=== PATIENT | female | born 1990 | race American Indian/Alaskan Native ===

== ENCOUNTER 2021-03-01 08:24 | Inpatient (IN) | payer OTHER ==
[2021-03-01] MEDS ORDERED: TERBUTALINE 1 MG/1 ML INJ SUB-Q PRN (10:00)
[2021-03-01] MEDS ORDERED: LIDOCAINE (2%) 20 MG/1 ML VIAL 20 ML MDV INFILTRATI SCH (10:00)
[2021-03-01] MEDS ORDERED: BUTORPHANOL 2 MG/1 ML INJ IV PRN (10:00)
[2021-03-01] MEDS ORDERED: fentaNYL 100 MCG/2 ML INJ IV PRN (10:00)
[2021-03-01] MEDS ORDERED: OXYTOCIN DRIP 30 UNITS/500 ML BAG IV SCH ×2 (10:00)
[2021-03-01] MEDS ORDERED: MINERAL OIL 30 ML ORAL LIQD PO PRN (10:00)
[2021-03-01] MEDS ORDERED: ePHEDrine SULFATE 50 MG/1 ML INJ IV PRN (10:00)
[2021-03-01] MEDS ORDERED: ONDANSETRON 4 MG/2 ML INJ IV PRN (10:00)
[2021-03-01] MEDS ORDERED: ACETAMINOPHEN 325 MG TAB PO PRN (10:00)
[2021-03-01] MEDS ORDERED: DINOPROSTONE 10 MG VAG SUPP VG NR (10:17)
[2021-03-01] MEDS ORDERED: AMPICILLIN/NS 2 GM/100 ML 2 GM/100 ML BAG IV ONE (10:23)
[2021-03-01 10:29] LABS: Hematocrit 34.1 % (30.3-42.9); Hemoglobin 11.8 gm/dl (10.1-14.3); Mean Corpuscular HGB Conc 35 % (30-34); Mean Corpuscular Volume 91 fl (79-97); Platelet Count 240 K/mm3 (140-440); Red Blood Count 3.73 M/mm3 (3.65-5.03); Red Cell Distribution Width 13.9 % (13.2-15.2)
[2021-03-01] MEDS: LACTATED RINGERS 1,000 ML IV SCH (10:31)
--- NOTE | 2021-03-01 10:31 | History and Physical Report ---
History of Present Illness Date of examination: 03/01/21 Date of admission: 03/01/21 08:24 Chief complaint: iol History of present illness: 30-year-old G 1 P0 at 38-0/7 weeks with CHARMAINE 03/15/2021 for induction of labor for large for gestational age care lifecycle,total 13 visits Labs O+ antibody negative Rubella immune VDRL nonreactive Hep B negative HIV negative Platelets 310K HSV-2 9 Varicella immune GC chlamydia negative Trichomoniasis positive treated on 02/26 GBS positive Morbid obesity Past History Past Surgical History: no surgical history - Obstetrical History Expected Date of Delivery: 03/15/21 Actual Gestation: 38 Week(s) 0 Day(s) : 1 Medications and Allergies Allergies Allergy/AdvReac Type Severity Reaction Status Date / Time No Known Allergies Allergy Verified 03/01/21 09:43 Home Medications Medication Instructions Recorded Confirmed Last Taken Type One Daily Tablet 1 tab PO DAILY 03/01/21 03/01/21 02/28/21 History Active Meds: Active Medications Acetaminophen (Acetaminophen 325 Mg Tab) 650 mg PO Q4H PRN PRN Reason: Pain, Mild (1-3) Butorphanol Tartrate (Butorphanol 2 Mg/1 Ml Inj) 1 mg IV Q2H PRN PRN Reason: Pain, Moderate(4-6) LABOR PAIN Dinoprostone (Dinoprostone 10 Mg Vag Supp) 10 mg VG ONCE NR Stop: 03/01/21 16:00 Ephedrine Sulfate (Ephedrine Sulfate 50 Mg/1 Ml Inj) 10 mg IV Q2M PRN PRN Reason: Hypotension Fentanyl (Fentanyl 100 Mcg/2 Ml Inj) 100 mcg IV Q2H PRN PRN Reason: Pain,Severe (7-10) LABOR PAIN Oxytocin/Sodium Chloride (Pitocin/Ns 30 Unit/500ml) 30 units in 500 mls @ 2 mls/hr IV TITR RICARDO; Protocol Lactated Ringer's (Lactated Ringers) 1,000 mls @ 125 mls/hr IV DIRECT RICARDO Oxytocin/Sodium Chloride (Pitocin/Ns 30 Unit/500ml) 30 units in 500 mls @ 40 mls/hr IV TITR RICARDO; Protocol Ampicillin Sodium (Ampicillin/Ns 2 Gm/100 Ml) 2 gm in 100 mls @ 100 mls/hr IV ONCE ONE; Protocol Stop: 03/01/21 11:22 Ampicillin Sodium (Ampicillin/Ns 1 Gm/50 Ml) 1 gm in 50 mls @ 100 mls/hr IV Q4H RICARDO; Protocol Lidocaine (Lidocaine (2%) 20 Mg/1 Ml Vial 20 Ml Mdv) 20 ml INFILTRATI ONCE RICARDO Stop: 03/02/21 09:59 Mineral Oil (Mineral Oil 30 Ml Oral Liqd) 30 ml PO QHS PRN PRN Reason: Constipation Ondansetron HCl (Ondansetron 4 Mg/2 Ml Inj) 4 mg IV Q8H PRN PRN Reason: Nausea And Vomiting Terbutaline Sulfate (Terbutaline 1 Mg/1 Ml Inj) 0.25 mg SUB-Q ONCE PRN PRN Reason: Hyperstimulation/Hypertonicity - Vital Signs Vital signs: Vital Signs Pulse BP 107 H 137/84 03/01/21 08:57 03/01/21 08:57 Temp Pulse Resp BP Pulse Ox 98.4 F 92 H 18 114/61 97 03/01/21 08:58 03/01/21 10:24 03/01/21 08:58 03/01/21 10:02 03/01/21 10:24 - Physical Exam Breasts: Positive: deferred Cardiovascular: Regular rate Lungs: Positive: Clear to auscultation Abdomen: Positive: normal appearance, normal bowel sounds Genitourinary (Female): Positive: normal external genitalia, normal perenium Vagina: Positive: normal moisture Extremities: Positive: normal Deep Tendon Reflex Grade: Normal +2 - Obstetrical FHR: category 1 Cervical Dilatation: 0 station: -4 Results All other labs normal. Assessment and Plan Induction of labor secondary to LGA(estimated weight at the 90th percentile at 35 weeks) Plan Cervidil GBS prophylaxis Continuous monitor Maternal status reassuring overall Monitor labor progress closely Marta Montiel MD
[2021-03-02] MEDS ORDERED: DINOPROSTONE 10 MG VAG SUPP VG ONE (03:30)
--- NOTE | 2021-03-02 04:09 | Event Note ---
Date: 03/02/21 Cervidil 10 mg placed in posterior fornix of vagina.
--- NOTE | 2021-03-02 10:10 | Progress Note ---
Subjective - Subjective Date of service: 03/02/21 Interval history: AM rounds IOL for LGA Cervidil #2 placed at 03:56 this AM 03/02/21 FHT: Category 1 [place]: irregular continue current plan of care: cervical ripening. Will reassess this afternoon Maternal/ well being reassuring overall. Marta Montiel MD Objective - Vital Signs Vital Signs: Vital Signs - 12hr 03/01/21 03/01/21 03/01/21 22:14 22:19 22:24 Temperature Pulse Rate 112 H 110 H 89 Respiratory Rate Blood Pressure O2 Sat by Pulse 98 97 96 Oximetry 03/01/21 03/01/21 03/01/21 22:29 22:34 22:39 Temperature Pulse Rate 98 H 91 H 106 H Respiratory Rate Blood Pressure O2 Sat by Pulse 96 97 98 Oximetry 03/01/21 03/01/21 03/01/21 22:44 22:49 22:54 Temperature Pulse Rate 102 H 98 H 94 H Respiratory Rate Blood Pressure O2 Sat by Pulse 98 97 96 Oximetry 03/01/21 03/01/21 03/01/21 22:59 23:04 23:09 Temperature Pulse Rate 99 H 101 H 97 H Respiratory Rate Blood Pressure O2 Sat by Pulse 97 97 96 Oximetry 03/01/21 03/01/21 03/01/21 23:14 23:19 23:25 Temperature Pulse Rate 98 H 101 H 96 H Respiratory Rate Blood Pressure O2 Sat by Pulse 96 97 98 Oximetry 03/01/21 03/01/21 03/01/21 23:30 23:35 23:38 Temperature Pulse Rate 96 H 97 H 93 H Respiratory Rate Blood Pressure 122/57 O2 Sat by Pulse 97 97 Oximetry 03/01/21 03/01/21 03/01/21 23:40 23:50 23:55 Temperature Pulse Rate 101 H 102 H 84 Respiratory Rate Blood Pressure O2 Sat by Pulse 98 98 97 Oximetry 03/02/21 03/02/21 03/02/21 00:00 00:05 00:10 Temperature Pulse Rate 98 H 97 H 90 Respiratory Rate Blood Pressure O2 Sat by Pulse 96 96 96 Oximetry 03/02/21 03/02/21 03/02/21 00:15 00:17 00:20 Temperature Pulse Rate 99 H 91 H 91 H Respiratory Rate Blood Pressure O2 Sat by Pulse 97 94 97 Oximetry 03/02/21 03/02/21 03/02/21 00:25 00:30 00:35 Temperature Pulse Rate 86 94 H 92 H Respiratory Rate Blood Pressure O2 Sat by Pulse 96 96 97 Oximetry 03/02/21 03/02/21 03/02/21 00:38 00:40 00:45 Temperature Pulse Rate 85 82 93 H Respiratory Rate Blood Pressure 107/70 O2 Sat by Pulse 95 99 Oximetry 03/02/21 03/02/21 03/02/21 00:50 00:55 01:00 Temperature Pulse Rate 97 H 102 H 96 H Respiratory Rate Blood Pressure O2 Sat by Pulse 98 97 97 Oximetry 03/02/21 03/02/21 03/02/21 01:05 01:10 01:15 Temperature Pulse Rate 88 101 H 92 H Respiratory Rate Blood Pressure O2 Sat by Pulse 97 98 97 Oximetry 03/02/21 03/02/21 03/02/21 01:20 01:25 01:30 Temperature Pulse Rate 88 99 H 100 H Respiratory Rate Blood Pressure O2 Sat by Pulse 96 97 97 Oximetry 03/02/21 03/02/21 03/02/21 01:35 01:40 01:45 Temperature Pulse Rate 104 H 102 H 101 H Respiratory Rate Blood Pressure O2 Sat by Pulse 97 98 97 Oximetry 03/02/21 03/02/21 03/02/21 01:50 01:55 01:58 Temperature Pulse Rate 89 90 87 Respiratory Rate Blood Pressure 111/60 O2 Sat by Pulse 98 98 94 Oximetry 03/02/21 03/02/21 03/02/21 02:00 02:05 02:10 Temperature Pulse Rate 95 H 99 H 98 H Respiratory Rate Blood Pressure O2 Sat by Pulse 96 96 97 Oximetry 03/02/21 03/02/21 03/02/21 02:15 02:23 02:28 Temperature Pulse Rate 90 92 H 99 H Respiratory Rate Blood Pressure O2 Sat by Pulse 98 97 97 Oximetry 03/02/21 03/02/21 03/02/21 02:33 02:38 02:43 Temperature Pulse Rate 99 H 90 80 Respiratory Rate Blood Pressure O2 Sat by Pulse 97 97 98 Oximetry 03/02/21 03/02/21 03/02/21 02:48 02:53 02:58 Temperature Pulse Rate 79 95 H 87 Respiratory Rate Blood Pressure O2 Sat by Pulse 97 98 98 Oximetry 04/03/02/21 03/02/21 03:03 03:08 03:13 Temperature Pulse Rate 79 83 81 Respiratory Rate Blood Pressure O2 Sat by Pulse 98 98 97 Oximetry 03/02/21 03/02/21 03/02/21 03:18 03:23 03:28 Temperature Pulse Rate 84 86 87 Respiratory Rate Blood Pressure O2 Sat by Pulse 97 97 97 Oximetry 03/02/21 03/02/21 03/02/21 03:33 03:38 03:39 Temperature Pulse Rate 87 75 87 Respiratory Rate Blood Pressure O2 Sat by Pulse 97 93 97 Oximetry 03/02/21 03/02/21 03/02/21 03:44 03:49 03:54 Temperature Pulse Rate 85 102 H 91 H Respiratory Rate Blood Pressure O2 Sat by Pulse 97 97 96 Oximetry 03/02/21 03/02/21 03/02/21 03:59 04:04 04:09 Temperature Pulse Rate 86 96 H 94 H Respiratory Rate Blood Pressure O2 Sat by Pulse 99 96 98 Oximetry 03/02/21 03/02/21 03/02/21 04:14 04:19 04:24 Temperature Pulse Rate 100 H 85 79 Respiratory Rate Blood Pressure O2 Sat by Pulse 98 98 98 Oximetry 03/02/21 03/02/21 03/02/21 04:29 04:34 04:39 Temperature Pulse Rate 86 88 78 Respiratory Rate Blood Pressure 109/57 O2 Sat by Pulse 97 96 98 Oximetry 03/02/21 03/02/21 03/02/21 04:44 04:49 04:53 Temperature Pulse Rate 77 84 86 Respiratory Rate Blood Pressure O2 Sat by Pulse 97 97 94 Oximetry 03/02/21 03/02/21 03/02/21 04:54 04:59 05:03 Temperature Pulse Rate 83 85 89 Respiratory Rate Blood Pressure O2 Sat by Pulse 97 97 94 Oximetry 03/02/21 03/02/21 03/02/21 05:04 05:09 05:14 Temperature Pulse Rate 73 73 84 Respiratory Rate Blood Pressure O2 Sat by Pulse 96 95 95 Oximetry 03/02/21 03/02/21 03/02/21 05:16 05:19 05:24 Temperature Pulse Rate 74 94 H 88 Respiratory Rate Blood Pressure O2 Sat by Pulse 94 95 95 Oximetry 03/02/21 03/02/21 03/02/21 05:29 05:34 05:38 Temperature Pulse Rate 79 84 81 Respiratory Rate Blood Pressure 124/60 O2 Sat by Pulse 96 96 Oximetry 03/02/21 03/02/21 03/02/21 05:39 05:42 05:44 Temperature Pulse Rate 86 76 85 Respiratory Rate Blood Pressure O2 Sat by Pulse 96 93 96 Oximetry 03/02/21 03/02/21 03/02/21 05:49 05:54 05:59 Temperature Pulse Rate 86 80 81 Respiratory Rate Blood Pressure O2 Sat by Pulse 96 96 96 Oximetry 03/02/21 03/02/21 03/02/21 06:04 06:07 06:09 Temperature Pulse Rate 85 81 82 Respiratory Rate Blood Pressure O2 Sat by Pulse 96 93 96 Oximetry 03/02/21 03/02/21 03/02/21 06:14 06:19 06:24 Temperature Pulse Rate 86 82 82 Respiratory Rate Blood Pressure O2 Sat by Pulse 96 96 95 Oximetry 03/02/21 03/02/21 03/02/21 06:29 06:34 06:36 Temperature Pulse Rate 84 81 74 Respiratory Rate Blood Pressure O2 Sat by Pulse 96 96 93 Oximetry 03/02/21 03/02/21 03/02/21 06:39 06:44 06:49 Temperature Pulse Rate 75 76 84 Respiratory Rate Blood Pressure O2 Sat by Pulse 99 97 98 Oximetry 03/02/21 03/02/21 03/02/21 06:54 06:59 07:04 Temperature Pulse Rate 78 88 83 Respiratory Rate Blood Pressure O2 Sat by Pulse 98 97 99 Oximetry 03/02/21 03/02/21 03/02/21 07:09 07:14 07:19 Temperature Pulse Rate 80 78 78 Respiratory Rate Blood Pressure O2 Sat by Pulse 96 98 97 Oximetry 03/02/21 03/02/21 03/02/21 07:24 07:29 07:33 Temperature Pulse Rate 75 82 75 Respiratory Rate Blood Pressure O2 Sat by Pulse 99 97 94 Oximetry 03/02/21 03/02/21 03/02/21 07:34 07:38 07:39 Temperature Pulse Rate 75 71 75 Respiratory Rate Blood Pressure 110/57 O2 Sat by Pulse 89 96 Oximetry 03/02/21 03/02/21 03/02/21 07:42 07:44 07:49 Temperature Pulse Rate 71 73 71 Respiratory Rate Blood Pressure O2 Sat by Pulse 93 96 92 Oximetry 03/02/21 03/02/21 03/02/21 07:54 07:58 07:59 Temperature Pulse Rate 74 68 72 Respiratory Rate Blood Pressure O2 Sat by Pulse 97 90 97 Oximetry 03/02/21 03/02/21 03/02/21 08:00 08:04 08:09 Temperature 98.1 F Pulse Rate 71 82 Respiratory 16 Rate Blood Pressure O2 Sat by Pulse 97 96 Oximetry 03/02/21 03/02/21 03/02/21 08:14 08:23 08:28 Temperature Pulse Rate 105 H 91 H 84 Respiratory Rate Blood Pressure O2 Sat by Pulse 97 100 99 Oximetry 03/02/21 03/02/21 03/02/21 08:33 08:38 08:39 Temperature Pulse Rate 83 98 H 98 H Respiratory Rate Blood Pressure 131/58 O2 Sat by Pulse 99 97 Oximetry 03/02/21 03/02/21 03/02/21 08:43 08:48 08:53 Temperature Pulse Rate 91 H 82 80 Respiratory Rate Blood Pressure O2 Sat by Pulse 98 98 98 Oximetry 03/02/21 03/02/21 03/02/21 08:58 09:03 09:08 Temperature Pulse Rate 84 91 H 93 H Respiratory Rate Blood Pressure O2 Sat by Pulse 99 97 95 Oximetry 03/02/21 03/02/21 03/02/21 09:13 09:18 09:23 Temperature Pulse Rate 85 79 85 Respiratory Rate Blood Pressure O2 Sat by Pulse 97 96 97 Oximetry 03/02/21 03/02/21 03/02/21 09:28 09:33 09:38 Temperature Pulse Rate 87 83 73 Respiratory Rate Blood Pressure O2 Sat by Pulse 98 96 98 Oximetry 03/02/21 03/02/21 03/02/21 09:39 09:43 09:48 Temperature Pulse Rate 81 79 80 Respiratory Rate Blood Pressure 136/84 O2 Sat by Pulse 97 98 Oximetry 03/02/21 03/02/21 03/02/21 09:53 09:58 10:03 Temperature Pulse Rate 89 101 H 98 H Respiratory Rate Blood Pressure O2 Sat by Pulse 97 97 99 Oximetry - Labs Labs: Abnormal Labs 03/01/21 09:18 MCHC 35 H Laboratory Results - last 24 hr 03/01/21 03/01/21 09:18 09:18 WBC 7.4 RBC 3.73 Hgb 11.8 Hct 34.1 MCV 91 MCH 32 MCHC 35 H RDW 13.9 Plt Count 240 Blood Type O POSITIVE Antibody Screen Negative
--- NOTE | 2021-03-02 18:45 | Progress Note ---
Subjective - Subjective Date of service: 03/02/21 Interval history: PM rounds IOL for LGA Cervidilx2 with no cervical change closed,long,high FHT: Category 1 [place]: irregular continue current plan of care: cervical ripening with cytotec x4 doses If no cervical change plan for operative delivery Maternal/ well being reassuring overall. Marta Montiel MD Objective - Vital Signs Vital Signs: Vital Signs - 12hr 03/02/21 03/02/21 03/02/21 06:49 06:54 06:59 Temperature Pulse Rate 84 78 88 Respiratory Rate Blood Pressure O2 Sat by Pulse 98 98 97 Oximetry 03/02/21 03/02/21 03/02/21 07:04 07:09 07:14 Temperature Pulse Rate 83 80 78 Respiratory Rate Blood Pressure O2 Sat by Pulse 99 96 98 Oximetry 03/02/21 03/02/21 03/02/21 07:19 07:24 07:29 Temperature Pulse Rate 78 75 82 Respiratory Rate Blood Pressure O2 Sat by Pulse 97 99 97 Oximetry 03/02/21 03/02/21 03/02/21 07:33 07:34 07:38 Temperature Pulse Rate 75 75 71 Respiratory Rate Blood Pressure 110/57 O2 Sat by Pulse 94 89 Oximetry 03/02/21 03/02/21 03/02/21 07:39 07:42 07:44 Temperature Pulse Rate 75 71 73 Respiratory Rate Blood Pressure O2 Sat by Pulse 96 93 96 Oximetry 03/02/21 03/02/21 03/02/21 07:49 07:54 07:58 Temperature Pulse Rate 71 74 68 Respiratory Rate Blood Pressure O2 Sat by Pulse 92 97 90 Oximetry 03/02/21 03/02/21 03/02/21 07:59 08:00 08:04 Temperature 98.1 F Pulse Rate 72 71 Respiratory 16 Rate Blood Pressure O2 Sat by Pulse 97 97 Oximetry 03/02/21 03/02/21 03/02/21 08:09 08:14 08:23 Temperature Pulse Rate 82 105 H 91 H Respiratory Rate Blood Pressure O2 Sat by Pulse 96 97 100 Oximetry 03/02/21 03/02/21 03/02/21 08:28 08:33 08:38 Temperature Pulse Rate 84 83 98 H Respiratory Rate Blood Pressure O2 Sat by Pulse 99 99 97 Oximetry 03/02/21 03/02/21 03/02/21 08:39 08:43 08:48 Temperature Pulse Rate 98 H 91 H 82 Respiratory Rate Blood Pressure 131/58 O2 Sat by Pulse 98 98 Oximetry 03/02/21 03/02/21 03/02/21 08:53 08:58 09:03 Temperature Pulse Rate 80 84 91 H Respiratory Rate Blood Pressure O2 Sat by Pulse 98 99 97 Oximetry 03/02/21 03/02/21 03/02/21 09:08 09:13 09:18 Temperature Pulse Rate 93 H 85 79 Respiratory Rate Blood Pressure O2 Sat by Pulse 95 97 96 Oximetry 03/02/21 03/02/21 03/02/21 09:23 09:28 09:33 Temperature Pulse Rate 85 87 83 Respiratory Rate Blood Pressure O2 Sat by Pulse 97 98 96 Oximetry 03/02/21 03/02/21 03/02/21 09:38 09:39 09:43 Temperature Pulse Rate 73 81 79 Respiratory Rate Blood Pressure 136/84 O2 Sat by Pulse 98 97 Oximetry 03/02/21 03/02/21 03/02/21 09:48 09:53 09:58 Temperature Pulse Rate 80 89 101 H Respiratory Rate Blood Pressure O2 Sat by Pulse 98 97 97 Oximetry 03/02/21 03/02/21 03/02/21 10:03 10:08 10:13 Temperature Pulse Rate 98 H 86 81 Respiratory Rate Blood Pressure O2 Sat by Pulse 99 98 97 Oximetry 03/02/21 03/02/21 03/02/21 10:18 10:23 10:28 Temperature Pulse Rate 81 81 82 Respiratory Rate Blood Pressure O2 Sat by Pulse 98 98 99 Oximetry 03/02/21 03/02/21 03/02/21 10:33 10:50 10:55 Temperature Pulse Rate 86 85 84 Respiratory Rate Blood Pressure O2 Sat by Pulse 99 99 98 Oximetry 03/02/21 03/02/21 03/02/21 10:57 11:00 11:05 Temperature Pulse Rate 81 81 80 Respiratory Rate Blood Pressure 119/57 O2 Sat by Pulse 97 97 Oximetry 03/02/21 03/02/21 03/02/21 11:10 11:12 11:15 Temperature Pulse Rate 79 78 78 Respiratory Rate Blood Pressure O2 Sat by Pulse 97 94 97 Oximetry 03/02/21 03/02/21 03/02/21 11:20 11:25 11:30 Temperature Pulse Rate 80 83 81 Respiratory Rate Blood Pressure O2 Sat by Pulse 97 96 96 Oximetry 03/02/21 03/02/21 03/02/21 11:35 11:39 11:40 Temperature Pulse Rate 84 78 82 Respiratory Rate Blood Pressure 109/55 O2 Sat by Pulse 96 91 97 Oximetry 03/02/21 03/02/21 03/02/21 11:45 11:50 11:55 Temperature Pulse Rate 81 76 82 Respiratory Rate Blood Pressure O2 Sat by Pulse 97 96 96 Oximetry 03/02/21 03/02/21 03/02/21 12:00 12:05 12:10 Temperature 98.4 F Pulse Rate 78 82 74 Respiratory 18 Rate Blood Pressure O2 Sat by Pulse 95 97 98 Oximetry 03/02/21 03/02/21 03/02/21 12:15 12:20 12:25 Temperature Pulse Rate 73 76 72 Respiratory Rate Blood Pressure O2 Sat by Pulse 97 97 97 Oximetry 03/02/21 03/02/21 03/02/21 12:30 12:35 12:38 Temperature Pulse Rate 76 74 77 Respiratory Rate Blood Pressure 115/59 O2 Sat by Pulse 98 96 Oximetry 03/02/21 03/02/21 03/02/21 12:40 12:45 12:50 Temperature Pulse Rate 77 78 80 Respiratory Rate Blood Pressure O2 Sat by Pulse 98 97 97 Oximetry 03/02/21 03/02/21 03/02/21 12:55 13:00 13:05 Temperature Pulse Rate 77 83 95 H Respiratory Rate Blood Pressure O2 Sat by Pulse 96 97 98 Oximetry 03/02/21 03/02/21 03/02/21 13:10 13:15 13:20 Temperature Pulse Rate 92 H 91 H 76 Respiratory Rate Blood Pressure O2 Sat by Pulse 100 99 99 Oximetry 03/02/21 03/02/21 03/02/21 13:25 13:30 13:35 Temperature Pulse Rate 85 86 70 Respiratory Rate Blood Pressure O2 Sat by Pulse 100 99 100 Oximetry 03/02/21 03/02/21 03/02/21 13:38 13:40 13:45 Temperature Pulse Rate 72 75 77 Respiratory Rate Blood Pressure 117/64 O2 Sat by Pulse 99 98 Oximetry 03/02/21 03/02/21 03/02/21 13:50 13:55 14:00 Temperature Pulse Rate 74 77 81 Respiratory Rate Blood Pressure O2 Sat by Pulse 99 97 97 Oximetry 03/02/21 03/02/21 03/02/21 14:05 14:10 14:12 Temperature Pulse Rate 80 72 66 Respiratory Rate Blood Pressure O2 Sat by Pulse 97 96 92 Oximetry 03/02/21 03/02/21 03/02/21 14:15 14:18 14:20 Temperature Pulse Rate 83 67 77 Respiratory Rate Blood Pressure O2 Sat by Pulse 94 92 95 Oximetry 03/02/21 03/02/21 03/02/21 14:25 14:30 14:35 Temperature Pulse Rate 83 87 84 Respiratory Rate Blood Pressure O2 Sat by Pulse 97 96 96 Oximetry 03/02/21 03/02/21 03/02/21 14:38 14:40 14:45 Temperature Pulse Rate 81 86 81 Respiratory Rate Blood Pressure 113/57 O2 Sat by Pulse 94 96 97 Oximetry 03/02/21 03/02/21 03/02/21 14:50 14:55 15:00 Temperature 98.7 F Pulse Rate 81 86 80 Respiratory 18 Rate Blood Pressure O2 Sat by Pulse 96 97 97 Oximetry 03/02/21 03/02/21 03/02/21 15:05 15:10 15:15 Temperature Pulse Rate 78 80 83 Respiratory Rate Blood Pressure O2 Sat by Pulse 98 98 99 Oximetry 03/02/21 03/02/21 03/02/21 15:20 15:25 15:43 Temperature Pulse Rate 86 79 102 H Respiratory Rate Blood Pressure O2 Sat by Pulse 98 99 99 Oximetry 03/02/21 03/02/21 03/02/21 15:48 15:53 15:58 Temperature Pulse Rate 92 H 99 H 101 H Respiratory Rate Blood Pressure O2 Sat by Pulse 99 99 100 Oximetry 03/02/21 03/02/21 03/02/21 16:02 16:03 16:08 Temperature Pulse Rate 94 H 78 81 Respiratory Rate Blood Pressure 120/63 O2 Sat by Pulse 99 99 Oximetry 03/02/21 03/02/21 03/02/21 16:13 16:18 16:23 Temperature Pulse Rate 79 85 79 Respiratory Rate Blood Pressure O2 Sat by Pulse 100 99 99 Oximetry 03/02/21 03/02/21 03/02/21 16:28 16:33 16:38 Temperature Pulse Rate 81 90 89 Respiratory Rate Blood Pressure 120/58 O2 Sat by Pulse 99 99 99 Oximetry 03/02/21 03/02/21 03/02/21 16:43 16:48 18:30 Temperature Pulse Rate 83 92 H 105 H Respiratory Rate Blood Pressure 126/69 O2 Sat by Pulse 100 98 Oximetry 03/02/21 03/02/21 18:36 18:41 Temperature Pulse Rate 98 H 94 H Respiratory Rate Blood Pressure O2 Sat by Pulse 99 99 Oximetry - Labs Labs: Abnormal Labs 03/01/21 03/01/21 09:18 09:45 MCHC 35 H Coronavirus (PCR) Positive A Laboratory Results - last 24 hr 03/01/21 09:45 Coronavirus (PCR) Positive A
[2021-03-02] MEDS ORDERED: miSOPROStol 200 MCG TAB PO SCH (19:00)
[2021-03-02] MEDS: LACTATED RINGERS 1,000 ML IV SCH ×2 (19:06→22:36)
[2021-03-02] MEDS: miSOPROStol 25 MCG TAB PO SCH ×2 (19:35→23:33)
[2021-03-03] MEDS: miSOPROStol 25 MCG TAB PO SCH (03:44)
[2021-03-03] MEDS: LACTATED RINGERS 1,000 ML IV SCH ×2 (07:01→15:06)
[2021-03-03] MEDS ORDERED: LOPERAMIDE 2 MG CAP PO PRN (08:12)
[2021-03-03] MEDS ORDERED: miSOPROStol 25 MCG TAB PO ONE (11:00)
--- NOTE | 2021-03-03 13:21 | Progress Note ---
Assessment and Plan A: at 38 weeks, 2 days gestation. Class 3 obesity. P: Cytotec for cervical ripening per Dr. Montiel's recommendation. Continuous EFM. Subjective - Subjective Date of service: 03/03/21 Principal diagnosis: at 36 weeks, 2 days gestation; IOL Patient reports: movement normal, no new complaints, no loss of fluid, no vaginal bleeding, no contractions Objective - Vital Signs Vital Signs: Vital Signs - 12hr 03/03/21 03/03/21 03/03/21 01:24 01:29 01:33 Temperature Pulse Rate 95 H 102 H 90 Respiratory Rate Blood Pressure 119/71 Blood Pressure [Left] O2 Sat by Pulse 97 96 Oximetry 03/03/21 03/03/21 03/03/21 01:34 01:39 01:44 Temperature Pulse Rate 102 H 92 H 101 H Respiratory Rate Blood Pressure Blood Pressure [Left] O2 Sat by Pulse 97 97 97 Oximetry 03/03/21 03/03/21 03/03/21 01:49 01:54 01:59 Temperature Pulse Rate 96 H 95 H 88 Respiratory Rate Blood Pressure Blood Pressure [Left] O2 Sat by Pulse 98 98 99 Oximetry 03/03/21 03/03/21 03/03/21 02:04 02:09 02:14 Temperature Pulse Rate 93 H 81 89 Respiratory Rate Blood Pressure Blood Pressure [Left] O2 Sat by Pulse 96 96 97 Oximetry 03/03/21 03/03/21 03/03/21 02:19 02:24 02:29 Temperature Pulse Rate 91 H 91 H 95 H Respiratory Rate Blood Pressure Blood Pressure [Left] O2 Sat by Pulse 97 98 99 Oximetry 03/03/21 03/03/21 03/03/21 02:32 02:34 02:39 Temperature Pulse Rate 88 95 H 79 Respiratory Rate Blood Pressure 116/63 Blood Pressure [Left] O2 Sat by Pulse 98 98 Oximetry 03/03/21 03/03/21 03/03/21 02:44 02:49 02:54 Temperature Pulse Rate 89 89 97 H Respiratory Rate Blood Pressure Blood Pressure [Left] O2 Sat by Pulse 98 99 98 Oximetry 03/03/21 03/03/21 03/03/21 02:59 03:04 03:09 Temperature Pulse Rate 94 H 86 90 Respiratory Rate Blood Pressure Blood Pressure [Left] O2 Sat by Pulse 98 98 98 Oximetry 03/03/21 03/03/21 03/03/21 03:14 03:19 03:35 Temperature Pulse Rate 95 H 88 83 Respiratory Rate Blood Pressure Blood Pressure [Left] O2 Sat by Pulse 97 99 100 Oximetry 03/03/21 03/03/21 03/03/21 03:40 03:45 03:50 Temperature Pulse Rate 122 H 103 H 95 H Respiratory Rate Blood Pressure Blood Pressure [Left] O2 Sat by Pulse 97 97 97 Oximetry 03/03/21 03/03/21 03/03/21 03:55 04:00 04:05 Temperature 98.1 F Pulse Rate 94 H 97 H 101 H Respiratory Rate Blood Pressure Blood Pressure [Left] O2 Sat by Pulse 97 97 98 Oximetry 03/03/21 03/03/21 03/03/21 04:10 04:15 04:20 Temperature Pulse Rate 98 H 92 H 106 H Respiratory Rate Blood Pressure Blood Pressure [Left] O2 Sat by Pulse 97 96 97 Oximetry 03/03/21 03/03/21 03/03/21 04:25 04:30 04:32 Temperature Pulse Rate 107 H 89 84 Respiratory Rate Blood Pressure 109/55 Blood Pressure [Left] O2 Sat by Pulse 96 98 94 Oximetry 03/03/21 03/03/21 03/03/21 04:35 04:40 04:45 Temperature Pulse Rate 88 83 74 Respiratory Rate Blood Pressure Blood Pressure [Left] O2 Sat by Pulse 96 97 97 Oximetry 03/03/21 03/03/21 03/03/21 04:50 04:55 05:00 Temperature Pulse Rate 85 87 84 Respiratory Rate Blood Pressure Blood Pressure [Left] O2 Sat by Pulse 96 95 97 Oximetry 03/03/21 03/03/21 03/03/21 05:05 05:10 05:14 Temperature Pulse Rate 83 86 87 Respiratory Rate Blood Pressure Blood Pressure [Left] O2 Sat by Pulse 97 97 94 Oximetry 03/03/21 03/03/21 03/03/21 05:15 05:20 05:23 Temperature Pulse Rate 86 88 91 H Respiratory Rate Blood Pressure Blood Pressure [Left] O2 Sat by Pulse 97 96 94 Oximetry 03/03/21 03/03/21 03/03/21 05:25 05:30 05:32 Temperature Pulse Rate 86 87 88 Respiratory Rate Blood Pressure 102/51 Blood Pressure [Left] O2 Sat by Pulse 96 97 Oximetry 03/03/21 03/03/21 03/03/21 05:35 05:40 05:45 Temperature Pulse Rate 89 95 H 85 Respiratory Rate Blood Pressure Blood Pressure [Left] O2 Sat by Pulse 96 98 98 Oximetry 03/03/21 03/03/21 03/03/21 05:50 05:54 05:55 Temperature Pulse Rate 87 82 89 Respiratory Rate Blood Pressure Blood Pressure [Left] O2 Sat by Pulse 97 93 95 Oximetry 03/03/21 03/03/21 03/03/21 06:00 06:04 06:05 Temperature Pulse Rate 100 H 84 90 Respiratory Rate Blood Pressure Blood Pressure [Left] O2 Sat by Pulse 96 93 94 Oximetry 03/03/21 03/03/21 03/03/21 06:10 06:15 06:20 Temperature Pulse Rate 83 88 89 Respiratory Rate Blood Pressure Blood Pressure [Left] O2 Sat by Pulse 96 97 97 Oximetry 03/03/21 03/03/21 03/03/21 06:25 06:30 06:32 Temperature Pulse Rate 84 86 87 Respiratory Rate Blood Pressure 107/57 Blood Pressure [Left] O2 Sat by Pulse 97 98 Oximetry 03/03/21 03/03/21 03/03/21 06:35 06:40 06:45 Temperature Pulse Rate 86 85 88 Respiratory Rate Blood Pressure Blood Pressure [Left] O2 Sat by Pulse 97 97 95 Oximetry 03/03/21 03/03/21 03/03/21 06:50 06:55 06:59 Temperature Pulse Rate 91 H 88 93 H Respiratory Rate Blood Pressure Blood Pressure [Left] O2 Sat by Pulse 96 96 89 Oximetry 03/03/21 03/03/21 03/03/21 07:00 07:14 07:19 Temperature Pulse Rate 89 106 H 92 H Respiratory Rate Blood Pressure Blood Pressure [Left] O2 Sat by Pulse 96 97 98 Oximetry 03/03/21 03/03/21 03/03/21 07:23 07:24 07:29 Temperature 97.9 F Pulse Rate 88 90 100 H Respiratory 18 Rate Blood Pressure 119/67 Blood Pressure 119/67 [Left] O2 Sat by Pulse 98 97 98 Oximetry 03/03/21 03/03/21 03/03/21 07:32 07:34 07:39 Temperature Pulse Rate 89 103 H 99 H Respiratory Rate Blood Pressure 128/72 Blood Pressure [Left] O2 Sat by Pulse 98 96 Oximetry 03/03/21 03/03/21 03/03/21 07:44 07:49 07:54 Temperature Pulse Rate 96 H 96 H 98 H Respiratory Rate Blood Pressure Blood Pressure [Left] O2 Sat by Pulse 96 99 100 Oximetry 03/03/21 03/03/21 03/03/21 07:59 08:04 08:09 Temperature Pulse Rate 94 H 89 98 H Respiratory Rate Blood Pressure Blood Pressure [Left] O2 Sat by Pulse 98 97 98 Oximetry 03/03/21 03/03/21 03/03/21 08:14 08:19 08:24 Temperature Pulse Rate 107 H 84 84 Respiratory Rate Blood Pressure Blood Pressure [Left] O2 Sat by Pulse 98 98 98 Oximetry 03/03/21 03/03/21 03/03/21 08:29 08:32 08:34 Temperature Pulse Rate 90 88 86 Respiratory Rate Blood Pressure 118/58 Blood Pressure [Left] O2 Sat by Pulse 98 99 Oximetry 03/03/21 03/03/21 03/03/21 08:39 09:41 09:46 Temperature Pulse Rate 90 71 83 Respiratory Rate Blood Pressure 138/56 Blood Pressure [Left] O2 Sat by Pulse 98 93 96 Oximetry 03/03/21 03/03/21 03/03/21 09:51 09:56 10:01 Temperature Pulse Rate 76 83 80 Respiratory Rate Blood Pressure Blood Pressure [Left] O2 Sat by Pulse 99 97 99 Oximetry 03/03/21 03/03/21 03/03/21 10:06 10:11 10:16 Temperature Pulse Rate 79 79 81 Respiratory Rate Blood Pressure Blood Pressure [Left] O2 Sat by Pulse 99 100 98 Oximetry 03/03/21 03/03/21 03/03/21 10:21 10:26 10:31 Temperature Pulse Rate 83 79 80 Respiratory Rate Blood Pressure Blood Pressure [Left] O2 Sat by Pulse 99 99 97 Oximetry 03/03/21 03/03/21 03/03/21 10:32 10:33 10:36 Temperature Pulse Rate 76 63 84 Respiratory Rate Blood Pressure 119/64 Blood Pressure [Left] O2 Sat by Pulse 90 94 Oximetry 03/03/21 03/03/21 03/03/21 10:41 10:46 10:51 Temperature Pulse Rate 79 90 83 Respiratory Rate Blood Pressure Blood Pressure [Left] O2 Sat by Pulse 82 L 94 97 Oximetry 0403/03/21 03/03/21 11:24 11:25 11:38 Temperature 98.7 F Pulse Rate 82 52 L Respiratory 18 Rate Blood Pressure 116/66 Blood Pressure 116/66 [Left] O2 Sat by Pulse 98 81 L 87 Oximetry 03/03/21 03/03/21 03/03/21 11:42 11:43 11:49 Temperature Pulse Rate 76 57 L 89 Respiratory Rate Blood Pressure 134/61 Blood Pressure [Left] O2 Sat by Pulse 84 94 99 Oximetry 03/03/21 03/03/21 03/03/21 11:54 11:59 12:04 Temperature Pulse Rate 83 80 79 Respiratory Rate Blood Pressure Blood Pressure [Left] O2 Sat by Pulse 98 98 98 Oximetry 03/03/21 03/03/21 03/03/21 12:06 12:09 12:12 Temperature Pulse Rate 82 72 86 Respiratory Rate Blood Pressure Blood Pressure [Left] O2 Sat by Pulse 94 97 94 Oximetry 03/03/21 03/03/21 03/03/21 12:14 12:18 12:19 Temperature Pulse Rate 88 88 83 Respiratory Rate Blood Pressure Blood Pressure [Left] O2 Sat by Pulse 94 94 95 Oximetry 03/03/21 03/03/21 03/03/21 12:23 12:24 12:29 Temperature Pulse Rate 73 76 91 H Respiratory Rate Blood Pressure Blood Pressure [Left] O2 Sat by Pulse 94 91 98 Oximetry 03/03/21 03/03/21 03/03/21 12:32 12:34 12:39 Temperature Pulse Rate 78 76 74 Respiratory Rate Blood Pressure 135/79 Blood Pressure [Left] O2 Sat by Pulse 94 97 96 Oximetry 03/03/21 03/03/21 03/03/21 12:44 12:49 12:54 Temperature Pulse Rate 81 74 83 Respiratory Rate Blood Pressure Blood Pressure [Left] O2 Sat by Pulse 97 97 96 Oximetry 03/03/21 03/03/21 03/03/21 12:59 13:04 13:09 Temperature Pulse Rate 77 83 80 Respiratory Rate Blood Pressure Blood Pressure [Left] O2 Sat by Pulse 97 97 97 Oximetry 03/03/21 03/03/21 13:14 13:19 Temperature Pulse Rate 82 73 Respiratory Rate Blood Pressure Blood Pressure [Left] O2 Sat by Pulse 98 97 Oximetry - Exam Abdomen: Present: normal appearance, soft. Absent: distention, tenderness, guarding, rigidity Uterus: Present: fundal height above umbilicus. Absent: tenderness FHR: category 1 Uterine Contraction Monitor Mode: External - Labs Labs: Abnormal Labs 03/01/21 03/01/21 09:18 09:45 MCHC 35 H Coronavirus (PCR) Positive A Laboratory Results - last 24 hr 03/01/21 09:45 Coronavirus (PCR) Positive A
--- NOTE | 2021-03-03 18:09 | Event Note ---
Date: 03/03/21 E FT/60/-3. Plan to place Cervidil tonight.
[2021-03-03] MEDS ORDERED: DINOPROSTONE 10 MG VAG SUPP VG NR (20:39)
[2021-03-04] MEDS ORDERED: ZOLPIDEM 5 MG TAB PO ONE (00:08)
[2021-03-04] MEDS: LACTATED RINGERS 1,000 ML IV SCH ×3 (04:45→16:08)
--- NOTE | 2021-03-04 11:11 | Progress Note ---
Assessment and Plan A: IUP @ 38 3/7 Weeks Category I Tracing Class 3 Maternal Obesity Suspected LGA Poor Pain Control GBS Positive P: AROM IUPC Placed Start Pitocin Augmentation Continue GBS Prophylaxis IV Pain Control Prepare for Epidural Anesthesia Subjective - Subjective Date of service: 03/04/21 Principal diagnosis: at 36 weeks, 2 days gestation; IOL Patient reports: movement normal, other (Resting Epidural Anesthesia), no new complaints, no loss of fluid, no vaginal bleeding, no contractions Objective - Vital Signs Vital Signs: Vital Signs - 12hr 03/04/21 03/04/21 03/04/21 00:00 03:48 03:50 Temperature 98.3 F 98.6 F Pulse Rate 80 72 Respiratory 15 Rate Blood Pressure 132/63 122/59 Blood Pressure [Left] O2 Sat by Pulse Oximetry 03/04/21 03/04/21 03/04/21 07:32 07:33 09:04 Temperature 98.2 F Pulse Rate 80 80 72 Respiratory Rate Blood Pressure 119/58 Blood Pressure 119/58 [Left] O2 Sat by Pulse 99 Oximetry 03/04/21 03/04/21 03/04/21 09:09 09:14 09:19 Temperature Pulse Rate 76 91 H 72 Respiratory Rate Blood Pressure Blood Pressure [Left] O2 Sat by Pulse 98 98 98 Oximetry 03/04/21 03/04/21 03/04/21 09:23 09:24 09:28 Temperature Pulse Rate 68 71 70 Respiratory Rate Blood Pressure Blood Pressure [Left] O2 Sat by Pulse 94 98 93 Oximetry 03/04/21 03/04/21 03/04/21 09:29 09:34 09:39 Temperature Pulse Rate 91 H 78 77 Respiratory Rate Blood Pressure Blood Pressure [Left] O2 Sat by Pulse 92 97 98 Oximetry 03/04/21 03/04/21 03/04/21 09:44 09:49 09:54 Temperature Pulse Rate 74 80 81 Respiratory Rate Blood Pressure Blood Pressure [Left] O2 Sat by Pulse 98 98 98 Oximetry 03/04/21 03/04/21 03/04/21 09:59 10:04 10:09 Temperature Pulse Rate 78 77 68 Respiratory Rate Blood Pressure Blood Pressure [Left] O2 Sat by Pulse 98 98 98 Oximetry 03/04/21 03/04/21 03/04/21 10:14 10:19 10:24 Temperature Pulse Rate 73 74 82 Respiratory Rate Blood Pressure Blood Pressure [Left] O2 Sat by Pulse 98 99 99 Oximetry 03/04/21 03/04/21 03/04/21 10:29 10:43 10:48 Temperature Pulse Rate 90 105 H 98 H Respiratory Rate Blood Pressure Blood Pressure [Left] O2 Sat by Pulse 100 100 99 Oximetry 03/04/21 03/04/21 03/04/21 10:53 10:58 11:03 Temperature Pulse Rate 86 64 96 H Respiratory Rate Blood Pressure Blood Pressure [Left] O2 Sat by Pulse 100 84 99 Oximetry - Exam Breasts: normal Cardiovascular: Regular rate Lungs: Clear to auscultation, Normal air movement Abdomen: Present: normal appearance, soft Uterus: Present: normal, firm, fundal height above umbilicus FHR: category 1 Uterine Contraction Monitor Mode: Internal Cervical Dilatation: 3 (Large amount of Clear Fluid upon AROM at 1100) Cervical Effacement Percentage: 70 station: -2 Uterine Contraction Pattern: Irregular Uterine Contraction Intensity: Moderate Extremities: normal - Labs Labs: Abnormal Labs 03/01/21 03/01/21 09:18 09:45 MCHC 35 H Coronavirus (PCR) Positive A
[2021-03-04] MEDS ORDERED: NALOXONE 2 MG/2 ML INJ IV PRN (11:37)
[2021-03-04] MEDS ORDERED: ePHEDrine SULFATE 50 MG/1 ML INJ IV PRN (11:37)
--- NOTE | 2021-03-04 11:37 | Anesthesia Consultation ---
Anesthesia Consult and Med Hx Date of service: 03/04/21 - Airway Anesthetic Teeth Evaluation: Poor ROM Head & Neck: Adequate Mental/Hyoid Distance: Adequate Mallampati Class: Class III Intubation Access Assessment: Possibly Difficult - Pulmonary Exam CTA: Yes - Cardiac Exam Cardiac Exam: RRR - Pre-Operative Health Status ASA Pre-Surgery Classification: ASA2 Proposed Anesthetic Plan: Epidural - Pulmonary Hx Smoking: Yes (stop) Hx Asthma: No Hx Respiratory Symptoms: No SOB: No COPD: No Home Oxygen Therapy: No Hx Pneumonia: No Hx Sleep Apnea: No - Cardiovascular System Hx Hypertension: No Hx Coronary Artery Disease: No Hx Heart Attack/AMI: No Hx Angina: No Hx Percutaneous Transluminal Coronary Angioplasty (PTCA): No Hx Cardia Arrhythmia: No Hx Pacemaker: No Hx Internal Defibrillator: No Hx Valvular Heart Disease: No Hx Heart Murmur: No Hx Peripheral Vascular Disease: No - Central Nervous System Hx Neuromuscular Disorder: No Hx Seizures: No CVA: No Hx Back Pain: No Hx Psychiatric Problems: No - Gastrointestinal Hx Ulcer: No Hx Gastroesophageal Reflux Disease: No - Endocrine Hx Renal Disease: No Hx End Stage Renal Disease: No Hx Cirrhosis: No Hx Liver Disease: No Hx Insulin Dependent Diabetes: No Hx Non-Insulin Dependent Diabetes: No Hx Thyroid Disease: No Hx Hypothyroidism: No Hx Hyperthyroidism: No - Hematic Hx Anemia: No Hx Sickle Cell Disease: No - Other Systems Hx Alcohol Use: No Hx Substance Use: No Hx Cancer: No Hx Obesity: Yes
[2021-03-04] MEDS: AMPICILLIN/NS 1 GM/50 ML 1 GM/50 ML BAG IV SCH ×2 (11:41→16:08)
[2021-03-04] MEDS ORDERED: fentaNYL-BUPIV 2 MCG/ML-0.125% 200 MCG/100 ML BAG EPIDURAL SCH (12:00)
[2021-03-04] MEDS ORDERED: METHYLERGONOVINE MALEATE 0.2 MG/ML VIAL IM ONE (12:57)
--- NOTE | 2021-03-04 14:25 | Progress Note ---
Labor Epidural - Labor Epidural Start Time: 11:49 Stop Time: 11:58 Performed by:: ANGELIKA VELEZ Procedure: Patient is requesting a laboring epidural for laboring pain. Patient IDed, H&P reviewed, all questions and concerns were answered, and consent was signed. Timeout was performed at bedside. Patient in sitting position. Sterile prep and drape was performed. [3] ml of 1% lidocaine skin wheal at L[3]- L [4]. 18- gauge Tuohy epidural needle was advanced to loss of resistance with saline technique 8cm. Negative CSF negative blood. Epidural catheter advanced to [12] centimeters. [NEGATIVE] Aspiration [NEGATIVE] test dose. Sterile dressing applied. Patient tolerated procedure.
[2021-03-04] MEDS ORDERED: HYDROmorphone 1 MG/1 ML INJ IV PRN (17:51)
[2021-03-04] MEDS ORDERED: ONDANSETRON 4 MG/2 ML INJ IV PRN (17:51)
[2021-03-04] MEDS ORDERED: NALOXONE 0.4 MG/1 ML INJ IV PRN ×2 (17:51→21:47)
--- NOTE | 2021-03-04 17:51 | Anesthesia Day of Surgery ---
Anesthesia Day of Surgery - Day of Surgery Patient Examined: Yes Patient H&P Reviewed: Yes Patient is NPO: Yes Beta Blockers: No Cardiac Clearance: No Pulmonary Clearance: No Monroe's Test: N/A
[2021-03-04] MEDS ORDERED: METOCLOPRAMIDE 10 MG/2 ML INJ IV SCH (18:26)
[2021-03-04] MEDS ORDERED: LACTATED RINGERS 1,000 ML IV SCH (18:30)
--- NOTE | 2021-03-04 18:41 | Event Note ---
Date: 03/04/21 pt evaluated after sign out received from day team. Pelvic 3cm and ctx inadequate and FHR with subtle late decels. Category II tracing remote from delivery. Will plan on primary section, risks, benefits and alternatives discussed in detail to patient and her mother to bedsidel. All questions encouraged and answered. NICU and anesthesiologist notified. Will proceed to OR with COVID 19 positive precaution. Bood type and screen done.
[2021-03-04] MEDS ORDERED: OXYTOCIN DRIP 30 UNITS/500 ML BAG IV SCH ×2 (19:00→22:00)
[2021-03-04] MEDS ORDERED: FAMOTIDINE 20 MG/2 ML INJ IV ONE (19:26)
[2021-03-04] MEDS ORDERED: BICITRA ORAL LIQD 30ML PO ONE (19:26)
[2021-03-04] MEDS ORDERED: ONDANSETRON 4 MG/2 ML INJ ONE ×2 (19:48)
[2021-03-04] MEDS ORDERED: WATER FOR IRRIG STERILE 1,500 ML BOTTLE IR ONE (20:03)
[2021-03-04] MEDS ORDERED: SODIUM CHLORIDE 0.9% IRR 1,500 ML BOTTLE IR ONE (20:03)
[2021-03-04] MEDS ORDERED: KETOROLAC 30 MG/1 ML INJ ONE (21:17)
[2021-03-04] MEDS ORDERED: LIDOCAINE 2%/EPINEPHRINE 1:200,000 VIAL (20 ML) INFILTRATI ONE (21:17)
[2021-03-04] MEDS ORDERED: dexAMETHasone 20 MG/5 ML VIAL ONE (21:18)
[2021-03-04] MEDS ORDERED: SODIUM CHLORIDE 0.9% 100 ML ONE (21:18)
[2021-03-04] MEDS ORDERED: BUPIVACAINE/PF (0.5%) 5 MG/1 ML 30 ML VIAL INFILTRATI ONE (21:18)
--- NOTE | 2021-03-04 21:31 | Procedure Note ---
OB Delivery Note - Delivery Date of Delivery: 03/04/21 Surgeon: BETTYE MARIO Estimated blood loss: 500cc - Section Preop diagnosis: nonreassuring FHR tracing, other (Term , intolerance of labor remote from delivery; Morbid Obesity; GBS+; COVID 19 positive) Postop diagnosis: same section procedure: primary low transverse Disposition: floor Complications: none Narrative: Date: 03/04/21 Surgeon: Bettye Mario MD Preop Dx: IUP at 38.3wks, Failed induction with intolerance of labor, Non- reassuring FHR remote from delivery, GBS+; COVID 19+; Morbid Obesity Postop Dx: same and Occiput-presentation with caput Procedure : Primary Low transverse section Anesthesia: Epidural with Lidocaine per anesthesia Intake: 900cc crystalloids Output: 100cc concentrated urine pre and post op EBL: 500cc After the risks, benefits and alternatives of procedure discussed, patient signed consents and was taken to the operating room. Pt already had epidural anesthesia and was given dosing by anesthesiologist en route to the OR. After same was adequate, patient was prepped and draped in the usual sterile fashion. Murguia catheter already in place and draining concentrated urine. Pt was given prophylactic antibiotic per protocol and time out was done Pfannenstiel skin incision was made and taken sharply to the fascia and the incision extended using electrocautery. Superior edge of the fascia was grasped with lena clamps and the rectus muscle using blunt dissection and also using electrocautery. Lower portion of the fascia also sharply. Rectus muscle in the midline and Peritoneal cavity entered bluntly and extended with good visualization of the bladder. Liban retractor placed. The bladder flap was created sharply using metzenbaum scissors. Lower uterine segment then entered transversely and amniotic sac entered using allys clamps. Uterine incision extended manually. Infant delivered, bulb suctioned, cord clamped and baby handed to waiting pediatricians. Posterior Placenta was then delivered completely and uterine cavity cleared of all clots and debri. The uterus was not exteriorized and closed in 2 layers using 0- monocryl] suture in a running locked fashion and then an additional layer of imbrication using another 0-Monocyrl suture. Hemoblast placed and Excellent hemostasis noted. The gutters were cleared of clots and debri and anterior peritoneum closed using 3-0 vicryl suture and rectus muscle reapproximated using 0-vicryl suture. Rectus fascia closed with 0-vicryl suture and subcutaneous tissue copiously irrigated with normal saline and re-approximated using 3-0 vicryl suture in 2 layers. Excellent hemostasis remains. The skin was closed with 3-0 monocryl suture and steristrips placed with pressure dressing. Sponge, lap, instrument and needle counts x2 were normal. Patient tolerated the procedure well and was taken to recovery room stable. Findings: Viable male infant, APGARS 8/9 and weight 3314g. Occiput presentation with caput; Normal uterus, tubes and ovaries. - A at 1 minute: 8 at 5 minutes: 9 Infant Gender: Male (wt 3314g; clear amniotic fluid.)
[2021-03-04] MEDS ORDERED: MAGNESIUM HYDROXIDE (MOM) ORAL LIQD UDC PO PRN (21:47)
[2021-03-04] MEDS ORDERED: WITCH HAZEL/ GLYCERIN PAD TP PRN (21:47)
[2021-03-04] MEDS ORDERED: LANOLIN/ZINC/DIMETHICONE (LANSINOH) 7 GM TP PRN (21:47)
[2021-03-04] MEDS ORDERED: SIMETHICONE 80 MG CHEW TAB PO PRN (21:47)
--- NOTE | 2021-03-04 22:20 | Progress Note ---
Subjective Principal diagnosis: at 36 weeks, 2 days gestation; IOL Objective - Constitutional Vitals: Vital Signs - 12hr 03/04/21 03/04/21 03/04/21 10:24 10:29 10:43 Temperature Pulse Rate 82 90 105 H Respiratory Rate Blood Pressure O2 Sat by Pulse 99 100 100 Oximetry 03/04/21 03/04/21 03/04/21 10:48 10:53 10:58 Temperature Pulse Rate 98 H 86 64 Respiratory Rate Blood Pressure O2 Sat by Pulse 99 100 84 Oximetry 03/04/21 03/04/21 03/04/21 11:03 11:08 11:13 Temperature Pulse Rate 96 H 84 86 Respiratory Rate Blood Pressure O2 Sat by Pulse 99 99 99 Oximetry 03/04/21 03/04/21 03/04/21 11:14 11:15 11:17 Temperature 98.9 F Pulse Rate 76 59 L Respiratory Rate Blood Pressure 123/74 O2 Sat by Pulse 87 Oximetry 03/04/21 03/04/21 03/04/21 11:18 11:23 11:28 Temperature Pulse Rate 90 82 83 Respiratory Rate Blood Pressure O2 Sat by Pulse 100 99 99 Oximetry 03/04/21 03/04/21 03/04/21 11:33 11:35 11:38 Temperature Pulse Rate 95 H 68 97 H Respiratory Rate Blood Pressure O2 Sat by Pulse 100 32 L 96 Oximetry 03/04/21 03/04/21 03/04/21 11:41 11:43 11:48 Temperature Pulse Rate 103 H 103 H 100 H Respiratory Rate Blood Pressure 141/69 O2 Sat by Pulse 100 100 Oximetry 03/04/21 03/04/21 03/04/21 11:50 11:53 11:56 Temperature Pulse Rate 87 104 H 95 H Respiratory Rate Blood Pressure 111/56 136/69 105/56 O2 Sat by Pulse 100 Oximetry 03/04/21 03/04/21 03/04/21 11:58 12:01 12:03 Temperature Pulse Rate 101 H 93 H 109 H Respiratory Rate Blood Pressure 105/55 107/56 O2 Sat by Pulse 100 99 Oximetry 03/04/21 03/04/21 03/04/21 12:04 12:07 12:08 Temperature Pulse Rate 92 H 100 H 91 H Respiratory Rate Blood Pressure 102/54 114/55 O2 Sat by Pulse 99 Oximetry 03/04/21 03/04/2121 12:10 12:12 12:13 Temperature Pulse Rate 94 H 79 80 Respiratory Rate Blood Pressure 118/63 112/54 O2 Sat by Pulse 92 100 Oximetry 03/04/21 03/04/21 03/04/21 12:16 12:18 12:19 Temperature Pulse Rate 84 89 82 Respiratory Rate Blood Pressure 113/56 114/57 O2 Sat by Pulse 100 Oximetry 03/04/21 03/04/21 03/04/21 12:23 12:25 12:28 Temperature Pulse Rate 85 87 90 Respiratory Rate Blood Pressure 96/55 96/54 O2 Sat by Pulse 99 98 Oximetry 03/04/21 03/04/21 03/04/21 12:30 12:33 12:38 Temperature Pulse Rate 78 81 74 Respiratory Rate Blood Pressure 105/55 O2 Sat by Pulse 97 97 Oximetry 03/04/21 03/04/21 03/04/21 12:43 12:47 12:48 Temperature Pulse Rate 71 78 76 Respiratory Rate Blood Pressure 117/59 O2 Sat by Pulse 99 99 Oximetry 03/04/21 03/04/21 03/04/21 12:53 12:58 13:02 Temperature Pulse Rate 79 81 80 Respiratory Rate Blood Pressure 101/55 O2 Sat by Pulse 100 100 Oximetry 03/04/21 03/04/21 03/04/21 13:03 13:08 13:13 Temperature Pulse Rate 85 90 84 Respiratory Rate Blood Pressure O2 Sat by Pulse 99 100 100 Oximetry 03/04/21 03/04/21 03/04/21 13:18 13:20 13:23 Temperature Pulse Rate 80 84 79 Respiratory Rate Blood Pressure 111/52 O2 Sat by Pulse 100 99 Oximetry 03/04/21 03/04/21 03/04/21 13:28 13:32 13:33 Temperature Pulse Rate 78 74 77 Respiratory Rate Blood Pressure 95/48 O2 Sat by Pulse 99 99 Oximetry 03/04/21 03/04/21 03/04/21 13:38 13:43 13:48 Temperature Pulse Rate 74 78 80 Respiratory Rate Blood Pressure 104/52 O2 Sat by Pulse 100 100 100 Oximetry 03/04/21 03/04/21 03/04/21 13:53 13:58 14:03 Temperature Pulse Rate 69 66 90 Respiratory Rate Blood Pressure O2 Sat by Pulse 100 99 99 Oximetry 03/04/21 03/04/2103/04/21 14:08 14:13 14:18 Temperature Pulse Rate 92 H 81 73 Respiratory Rate Blood Pressure O2 Sat by Pulse 100 100 100 Oximetry 03/04/21 03/04/21 03/04/21 14:23 14:28 14:32 Temperature Pulse Rate 74 68 71 Respiratory Rate Blood Pressure 116/53 O2 Sat by Pulse 99 98 Oximetry 03/04/21 03/04/21 03/04/21 14:33 14:38 14:43 Temperature Pulse Rate 77 72 94 H Respiratory Rate Blood Pressure O2 Sat by Pulse 100 99 98 Oximetry 03/04/21 03/04/21 03/04/21 14:47 14:48 14:53 Temperature Pulse Rate 81 69 74 Respiratory Rate Blood Pressure 101/56 O2 Sat by Pulse 99 99 Oximetry 03/04/21 03/04/21 03/04/21 14:58 15:03 15:08 Temperature Pulse Rate 71 78 65 Respiratory Rate Blood Pressure O2 Sat by Pulse 100 100 100 Oximetry 03/04/21 03/04/21 03/04/21 15:13 15:18 15:19 Temperature Pulse Rate 77 73 76 Respiratory Rate Blood Pressure 97/54 O2 Sat by Pulse 100 100 Oximetry 03/04/21 03/04/21 03/04/21 15:23 15:28 15:33 Temperature Pulse Rate 70 77 77 Respiratory Rate Blood Pressure O2 Sat by Pulse 100 100 100 Oximetry 03/04/21 03/04/21 03/04/21 15:38 15:43 15:47 Temperature Pulse Rate 76 77 73 Respiratory Rate Blood Pressure 98/52 O2 Sat by Pulse 100 100 Oximetry 03/04/21 03/04/21 03/04/21 15:48 15:53 15:58 Temperature Pulse Rate 74 69 76 Respiratory Rate Blood Pressure O2 Sat by Pulse 100 100 100 Oximetry 03/04/21 03/04/21 03/04/21 16:03 16:08 16:13 Temperature Pulse Rate 82 118 H 90 Respiratory Rate Blood Pressure O2 Sat by Pulse 100 100 100 Oximetry 03/04/21 03/04/21 03/04/21 16:18 16:21 16:23 Temperature Pulse Rate 85 88 93 H Respiratory Rate Blood Pressure 120/72 O2 Sat by Pulse 100 99 Oximetry 03/04/21 03/04/21 03/04/21 16:27 16:28 16:33 Temperature 97.7 F Pulse Rate 80 76 Respiratory 20 Rate Blood Pressure O2 Sat by Pulse 99 100 Oximetry 03/04/21 03/04/21 03/04/21 16:38 16:43 16:48 Temperature Pulse Rate 81 66 88 Respiratory Rate Blood Pressure 110/74 O2 Sat by Pulse 99 100 100 Oximetry 03/04/21 03/04/21 03/04/21 16:53 16:58 17:03 Temperature Pulse Rate 78 95 H 94 H Respiratory Rate Blood Pressure O2 Sat by Pulse 100 100 100 Oximetry 03/04/21 03/04/21 03/04/21 17:08 17:13 17:15 Temperature Pulse Rate 82 83 95 H Respiratory Rate Blood Pressure 89/50 O2 Sat by Pulse 100 100 Oximetry 03/04/21 03/04/21 03/04/21 17:17 17:18 17:22 Temperature Pulse Rate 88 84 67 Respiratory Rate Blood Pressure 86/51 78/39 O2 Sat by Pulse 99 Oximetry 03/04/21 03/04/21 03/04/21 17:23 17:24 17:28 Temperature Pulse Rate 65 70 87 Respiratory Rate Blood Pressure 77/41 81/40 O2 Sat by Pulse 100 100 Oximetry 03/04/21 03/04/21 03/04/21 17:33 17:35 17:38 Temperature Pulse Rate 81 83 72 Respiratory Rate Blood Pressure 99/46 O2 Sat by Pulse 100 100 Oximetry 03/04/21 03/04/21 03/04/21 17:39 17:43 17:44 Temperature Pulse Rate 72 88 82 Respiratory Rate Blood Pressure 112/46 108/48 O2 Sat by Pulse 100 Oximetry 03/04/21 03/04/21 03/04/21 17:48 17:53 17:55 Temperature Pulse Rate 100 H 106 H 111 H Respiratory Rate Blood Pressure 91/50 O2 Sat by Pulse 100 100 Oximetry 03/04/21 03/04/21 03/04/21 17:58 18:03 18:04 Temperature Pulse Rate 106 H 85 88 Respiratory Rate Blood Pressure 131/59 125/72 O2 Sat by Pulse 100 100 Oximetry 03/04/21 03/04/21 03/04/21 18:08 18:13 18:18 Temperature Pulse Rate 90 93 H 82 Respiratory Rate Blood Pressure O2 Sat by Pulse 100 100 100 Oximetry 03/04/21 03/04/21 03/04/21 18:23 18:28 18:33 Temperature Pulse Rate 85 93 H 76 Respiratory Rate Blood Pressure O2 Sat by Pulse 99 100 100 Oximetry 03/04/21 03/04/21 03/04/21 18:38 18:43 18:44 Temperature Pulse Rate 101 H 91 H 96 H Respiratory Rate Blood Pressure 121/61 O2 Sat by Pulse 100 100 Oximetry 03/04/21 03/04/21 03/04/21 18:48 18:53 18:58 Temperature Pulse Rate 95 H 91 H 101 H Respiratory Rate Blood Pressure O2 Sat by Pulse 100 99 100 Oximetry 03/04/21 03/04/21 03/04/21 19:03 19:08 19:13 Temperature Pulse Rate 105 H 95 H 100 H Respiratory Rate Blood Pressure O2 Sat by Pulse 100 100 98 Oximetry 03/04/21 03/04/21 03/04/21 21:34 21:35 21:39 Temperature Pulse Rate 99 H 56 L 99 H Respiratory Rate Blood Pressure 107/57 O2 Sat by Pulse 99 90 98 Oximetry 03/04/21 03/04/21 03/04/21 21:40 21:41 21:44 Temperature Pulse Rate 114 H 97 H 101 H Respiratory Rate Blood Pressure 99/51 O2 Sat by Pulse 86 96 Oximetry 03/04/21 03/04/21 03/04/21 21:45 21:49 21:50 Temperature Pulse Rate 96 H 89 95 H Respiratory Rate Blood Pressure 105/53 106/59 O2 Sat by Pulse 97 Oximetry 03/04/21 03/04/21 03/04/21 21:54 21:55 21:59 Temperature Pulse Rate 91 H 86 96 H Respiratory Rate Blood Pressure 105/57 O2 Sat by Pulse 96 97 Oximetry 03/04/21 03/04/21 03/04/21 22:00 22:04 22:05 Temperature Pulse Rate 93 H 90 99 H Respiratory Rate Blood Pressure 108/57 111/61 O2 Sat by Pulse 98 Oximetry 03/04/21 03/04/21 03/04/21 22:09 22:10 22:14 Temperature Pulse Rate 89 99 H 92 H Respiratory Rate Blood Pressure 123/60 O2 Sat by Pulse 99 99 Oximetry 03/04/21 22:15 Temperature Pulse Rate 99 H Respiratory Rate Blood Pressure 108/64 O2 Sat by Pulse Oximetry - Labs CBC & Chem 7: 03/01/21 09:18 Regional Anesthesia Block - Regional Anesthesia Block Performed By:: ANGELIKA VELEZ Procedure: Patient consented for TAP block for post surgical pain management. Patient identified, monitors placed, and time out performed. TAP identified bilaterally via ultrasound. Skin prepped bilaterally with [chlorhexidine] and [22g stimuplex] needle advanced to the TAP. [Marcaine 0.22% 35ml] injected under ultrasound guidance on the [left] side. [Marcaine 0.22% 35ml] injected under ultrasound guidance on the [right] side. Negative aspiration every 5mL, No tabby nge in heart rate or rhythm. Patient tolerated the procedure well. No apparent complications seen.
--- NOTE | 2021-03-04 23:00 | Progress Note ---
Subjective Principal diagnosis: at 36 weeks, 2 days gestation; IOL Objective - Constitutional Vitals: Vital Signs - 12hr 03/04/21 03/04/21 03/04/21 11:03 11:08 11:13 Temperature Pulse Rate 96 H 84 86 Respiratory Rate Blood Pressure O2 Sat by Pulse 99 99 99 Oximetry 03/04/21 03/04/21 03/04/21 11:14 11:15 11:17 Temperature 98.9 F Pulse Rate 76 59 L Respiratory Rate Blood Pressure 123/74 O2 Sat by Pulse 87 Oximetry 03/04/21 03/04/21 03/04/21 11:18 11:23 11:28 Temperature Pulse Rate 90 82 83 Respiratory Rate Blood Pressure O2 Sat by Pulse 100 99 99 Oximetry 03/04/21 03/04/21 03/04/21 11:33 11:35 11:38 Temperature Pulse Rate 95 H 68 97 H Respiratory Rate Blood Pressure O2 Sat by Pulse 100 32 L 96 Oximetry 03/04/21 03/04/21 03/04/21 11:41 11:43 11:48 Temperature Pulse Rate 103 H 103 H 100 H Respiratory Rate Blood Pressure 141/69 O2 Sat by Pulse 100 100 Oximetry 03/04/21 03/04/21 03/04/21 11:50 11:53 11:56 Temperature Pulse Rate 87 104 H 95 H Respiratory Rate Blood Pressure 111/56 136/69 105/56 O2 Sat by Pulse 100 Oximetry 03/04/21 03/04/21 03/04/21 11:58 12:01 12:03 Temperature Pulse Rate 101 H 93 H 109 H Respiratory Rate Blood Pressure 105/55 107/56 O2 Sat by Pulse 100 99 Oximetry 03/04/21 03/04/21 03/04/21 12:04 12:07 12:08 Temperature Pulse Rate 92 H 100 H 91 H Respiratory Rate Blood Pressure 102/54 114/55 O2 Sat by Pulse 99 Oximetry 03/04/21 03/04/21 03/04/21 12:10 12:12 12:13 Temperature Pulse Rate 94 H 79 80 Respiratory Rate Blood Pressure 118/63 112/54 O2 Sat by Pulse 92 100 Oximetry 03/04/21 03/04/21 03/04/21 12:16 12:18 12:19 Temperature Pulse Rate 84 89 82 Respiratory Rate Blood Pressure 113/56 114/57 O2 Sat by Pulse 100 Oximetry 03/04/21 03/04/21 03/04/21 12:23 12:25 12:28 Temperature Pulse Rate 85 87 90 Respiratory Rate Blood Pressure 96/55 96/54 O2 Sat by Pulse 99 98 Oximetry 03/04/21 03/04/21 03/04/21 12:30 12:33 12:38 Temperature Pulse Rate 78 81 74 Respiratory Rate Blood Pressure 105/55 O2 Sat by Pulse 97 97 Oximetry 03/04/21 03/04/21 03/04/21 12:43 12:47 12:48 Temperature Pulse Rate 71 78 76 Respiratory Rate Blood Pressure 117/59 O2 Sat by Pulse 99 99 Oximetry 03/04/21 03/04/21 03/04/21 12:53 12:58 13:02 Temperature Pulse Rate 79 81 80 Respiratory Rate Blood Pressure 101/55 O2 Sat by Pulse 100 100 Oximetry 03/04/21 03/04/21 03/04/21 13:03 13:08 13:13 Temperature Pulse Rate 85 90 84 Respiratory Rate Blood Pressure O2 Sat by Pulse 99 100 100 Oximetry 03/04/21 03/04/21 03/04/21 13:18 13:20 13:23 Temperature Pulse Rate 80 84 79 Respiratory Rate Blood Pressure 111/52 O2 Sat by Pulse 100 99 Oximetry 03/04/21 03/04/21 03/04/21 13:28 13:32 13:33 Temperature Pulse Rate 78 74 77 Respiratory Rate Blood Pressure 95/48 O2 Sat by Pulse 99 99 Oximetry 03/04/21 03/04/21 03/04/21 13:38 13:43 13:48 Temperature Pulse Rate 74 78 80 Respiratory Rate Blood Pressure 104/52 O2 Sat by Pulse 100 100 100 Oximetry 03/04/21 03/04/21 03/04/21 13:53 13:58 14:03 Temperature Pulse Rate 69 66 90 Respiratory Rate Blood Pressure O2 Sat by Pulse 100 99 99 Oximetry 03/04/21 03/04/21 03/04/21 14:08 14:13 14:18 Temperature Pulse Rate 92 H 81 73 Respiratory Rate Blood Pressure O2 Sat by Pulse 100 100 100 Oximetry 03/04/21 03/04/21 03/04/21 14:23 14:28 14:32 Temperature Pulse Rate 74 68 71 Respiratory Rate Blood Pressure 116/53 O2 Sat by Pulse 99 98 Oximetry 04/03/04/21 03/04/21 14:33 14:38 14:43 Temperature Pulse Rate 77 72 94 H Respiratory Rate Blood Pressure O2 Sat by Pulse 100 99 98 Oximetry 03/04/21 03/04/21 03/04/21 14:47 14:48 14:53 Temperature Pulse Rate 81 69 74 Respiratory Rate Blood Pressure 101/56 O2 Sat by Pulse 99 99 Oximetry 03/04/21 03/04/21 03/04/21 14:58 15:03 15:08 Temperature Pulse Rate 71 78 65 Respiratory Rate Blood Pressure O2 Sat by Pulse 100 100 100 Oximetry 03/04/21 03/04/21 03/04/21 15:13 15:18 15:19 Temperature Pulse Rate 77 73 76 Respiratory Rate Blood Pressure 97/54 O2 Sat by Pulse 100 100 Oximetry 03/04/21 03/04/21 03/04/21 15:23 15:28 15:33 Temperature Pulse Rate 70 77 77 Respiratory Rate Blood Pressure O2 Sat by Pulse 100 100 100 Oximetry 03/04/21 03/04/21 03/04/21 15:38 15:43 15:47 Temperature Pulse Rate 76 77 73 Respiratory Rate Blood Pressure 98/52 O2 Sat by Pulse 100 100 Oximetry 03/04/21 03/04/21 03/04/21 15:48 15:53 15:58 Temperature Pulse Rate 74 69 76 Respiratory Rate Blood Pressure O2 Sat by Pulse 100 100 100 Oximetry 03/04/21 03/04/21 03/04/21 16:03 16:08 16:13 Temperature Pulse Rate 82 118 H 90 Respiratory Rate Blood Pressure O2 Sat by Pulse 100 100 100 Oximetry 03/04/21 03/04/21 03/04/21 16:18 16:21 16:23 Temperature Pulse Rate 85 88 93 H Respiratory Rate Blood Pressure 120/72 O2 Sat by Pulse 100 99 Oximetry 03/04/21 03/04/21 03/04/21 16:27 16:28 16:33 Temperature 97.7 F Pulse Rate 80 76 Respiratory 20 Rate Blood Pressure O2 Sat by Pulse 99 100 Oximetry 03/04/21 03/04/21 03/04/21 16:38 16:43 16:48 Temperature Pulse Rate 81 66 88 Respiratory Rate Blood Pressure 110/74 O2 Sat by Pulse 99 100 100 Oximetry 03/04/21 03/04/21 03/04/21 16:53 16:58 17:03 Temperature Pulse Rate 78 95 H 94 H Respiratory Rate Blood Pressure O2 Sat by Pulse 100 100 100 Oximetry 03/04/21 03/04/21 03/04/21 17:08 17:13 17:15 Temperature Pulse Rate 82 83 95 H Respiratory Rate Blood Pressure 89/50 O2 Sat by Pulse 100 100 Oximetry 03/04/21 03/04/21 03/04/21 17:17 17:18 17:22 Temperature Pulse Rate 88 84 67 Respiratory Rate Blood Pressure 86/51 78/39 O2 Sat by Pulse 99 Oximetry 03/04/21 03/04/21 03/04/21 17:23 17:24 17:28 Temperature Pulse Rate 65 70 87 Respiratory Rate Blood Pressure 77/41 81/40 O2 Sat by Pulse 100 100 Oximetry 03/04/21 03/04/21 03/04/21 17:33 17:35 17:38 Temperature Pulse Rate 81 83 72 Respiratory Rate Blood Pressure 99/46 O2 Sat by Pulse 100 100 Oximetry 03/04/21 03/04/21 03/04/21 17:39 17:43 17:44 Temperature Pulse Rate 72 88 82 Respiratory Rate Blood Pressure 112/46 108/48 O2 Sat by Pulse 100 Oximetry 03/04/21 03/04/21 03/04/21 17:48 17:53 17:55 Temperature Pulse Rate 100 H 106 H 111 H Respiratory Rate Blood Pressure 91/50 O2 Sat by Pulse 100 100 Oximetry 03/04/21 03/04/21 03/04/21 17:58 18:03 18:04 Temperature Pulse Rate 106 H 85 88 Respiratory Rate Blood Pressure 131/59 125/72 O2 Sat by Pulse 100 100 Oximetry 03/04/21 03/04/21 03/04/21 18:08 18:13 18:18 Temperature Pulse Rate 90 93 H 82 Respiratory Rate Blood Pressure O2 Sat by Pulse 100 100 100 Oximetry 03/04/21 03/04/21 03/04/21 18:23 18:28 18:33 Temperature Pulse Rate 85 93 H 76 Respiratory Rate Blood Pressure O2 Sat by Pulse 99 100 100 Oximetry 03/04/21 03/04/21 03/04/21 18:38 18:43 18:44 Temperature Pulse Rate 101 H 91 H 96 H Respiratory Rate Blood Pressure 121/61 O2 Sat by Pulse 100 100 Oximetry 0403/04/21 03/04/21 18:48 18:53 18:58 Temperature Pulse Rate 95 H 91 H 101 H Respiratory Rate Blood Pressure O2 Sat by Pulse 100 99 100 Oximetry 03/04/21 03/04/21 03/04/21 19:03 19:08 19:13 Temperature Pulse Rate 105 H 95 H 100 H Respiratory Rate Blood Pressure O2 Sat by Pulse 100 100 98 Oximetry 03/04/21 03/04/21 03/04/21 21:30 21:34 21:35 Temperature 98.4 F Pulse Rate 99 H 56 L Respiratory Rate Blood Pressure 107/57 O2 Sat by Pulse 99 90 Oximetry 03/04/21 03/04/21 03/04/21 21:39 21:40 21:41 Temperature Pulse Rate 99 H 114 H 97 H Respiratory Rate Blood Pressure 99/51 O2 Sat by Pulse 98 86 Oximetry 03/04/21 03/04/21 03/04/21 21:44 21:45 21:49 Temperature Pulse Rate 101 H 96 H 89 Respiratory Rate Blood Pressure 105/53 O2 Sat by Pulse 96 97 Oximetry 03/04/21 03/04/21 03/04/21 21:50 21:54 21:55 Temperature Pulse Rate 95 H 91 H 86 Respiratory Rate Blood Pressure 106/59 105/57 O2 Sat by Pulse 96 Oximetry 03/04/21 03/04/21 03/04/21 21:59 22:00 22:04 Temperature Pulse Rate 96 H 93 H 90 Respiratory Rate Blood Pressure 108/57 O2 Sat by Pulse 97 98 Oximetry 03/04/21 03/04/21 03/04/21 22:05 22:09 22:10 Temperature Pulse Rate 99 H 89 99 H Respiratory Rate Blood Pressure 111/61 123/60 O2 Sat by Pulse 99 Oximetry 03/04/21 03/04/21 03/04/21 22:14 22:15 22:19 Temperature Pulse Rate 92 H 99 H 91 H Respiratory Rate Blood Pressure 108/64 O2 Sat by Pulse 99 99 Oximetry 03/04/21 03/04/21 03/04/21 22:20 22:21 22:24 Temperature 98.3 F Pulse Rate 94 H 97 H Respiratory Rate Blood Pressure 149/78 O2 Sat by Pulse 100 Oximetry 03/04/21 03/04/21 03/04/21 22:25 22:29 22:30 Temperature Pulse Rate 84 86 83 Respiratory Rate Blood Pressure 118/56 134/58 O2 Sat by Pulse 99 Oximetry 03/04/21 03/04/21 03/04/21 22:34 22:36 22:39 Temperature Pulse Rate 92 H 93 H 80 Respiratory Rate Blood Pressure 143/61 O2 Sat by Pulse 100 99 Oximetry 03/04/21 03/04/21 03/04/21 22:40 22:44 22:47 Temperature Pulse Rate 83 71 86 Respiratory Rate Blood Pressure 115/56 116/56 O2 Sat by Pulse 99 Oximetry 03/04/21 03/04/21 03/04/21 22:49 22:50 22:54 Temperature Pulse Rate 75 90 74 Respiratory Rate Blood Pressure 119/65 O2 Sat by Pulse 98 98 Oximetry 03/04/21 22:55 Temperature Pulse Rate 77 Respiratory Rate Blood Pressure 117/56 O2 Sat by Pulse Oximetry - Labs CBC & Chem 7: 03/01/21 09:18 Regional Anesthesia Block - Regional Anesthesia Block Start Time: 22:38 Stop Time: 22:40 Performed By:: ANGELIKA VELEZ Procedure: Patient consented for TAP block for post surgical pain management. Patient identified, monitors placed, and time out performed. TAP identified bilaterally via ultrasound. Skin prepped bilaterally with [chlorhexidine] and [22g stimuplex] needle advanced to the TAP. [Marcaine 0.22% 35ml] injected under ultrasound guidance on the [left] side. [Marcaine 0.22% 35ml] injected under ultrasound guidance on the [right] side. Negative aspiration every 5mL, No change in heart rate or rhythm. Patient tolerated the procedure well. No apparent complications seen.
[2021-03-05] MEDS: LACTATED RINGERS 1,000 ML IV SCH (02:42)
[2021-03-05] MEDS: KETOROLAC 30 MG/1 ML INJ IV PRN ×2 (04:57→11:38)
--- NOTE | 2021-03-05 05:56 | Post Anesthesia Evaluation ---
- Post Anesthesia Evaluation Patient Participated: Yes Airway Patent: Yes Stable Respiratory Function: Yes Nausea/Vomiting: No Temp > 96.8F: Yes Pain Manageable: Yes Adequeate Hydration: Yes Anesthesia Complications: No Block Receding Appropriately: Yes Patient on Ventilator: No
[2021-03-05] MEDS: oxyCODONE /ACETAMINOPHEN 5-325MG TAB PO PRN ×2 (07:03→13:31)
--- NOTE | 2021-03-05 09:28 | Progress Note ---
Assessment and Plan A: S/P Primary LTCS Covid pos Awaiting post del H&H p: Continue routine pp care Encourage ambulation D/c home in 24-48 hrs if stable Subjective - Subjective Date of service: 03/05/21 Principal diagnosis: s/p primary LTCS Patient reports: appetite normal, pain well controlled, other (Murguia was just removed this am and no void yet. No gas either.) : doing well, bottle feeding Objective - Vital Signs Latest vital signs: Vital Signs Temp Pulse Resp BP BP Pulse Ox 03/05/21 08:10 97.8 F 75 18 98/57 94 03/05/21 04:07 98.1 F 72 20 115/63 96 03/04/21 23:25 98.7 F 75 102/52 03/04/21 23:14 71 97 03/04/21 23:10 105/58 03/04/21 23:09 82 96 03/04/21 23:05 84 108/61 03/04/21 23:04 76 96 03/04/21 23:00 75 109/58 03/04/21 22:59 81 98 03/04/21 22:55 77 117/56 03/04/21 22:54 74 98 03/04/21 22:50 90 119/65 03/04/21 22:49 75 98 03/04/21 22:47 86 116/56 03/04/21 22:44 71 99 03/04/21 22:40 83 115/56 03/04/21 22:39 80 99 03/04/21 22:36 93 H 143/61 03/04/21 22:34 92 H 100 03/04/21 22:30 83 134/58 03/04/21 22:29 86 99 03/04/21 22:25 84 118/56 03/04/21 22:24 97 H 100 03/04/21 22:21 94 H 149/78 03/04/21 22:20 98.3 F 03/04/21 22:19 91 H 99 03/04/21 22:15 99 H 108/64 03/04/21 22:14 92 H 99 03/04/21 22:10 99 H 123/60 03/04/21 22:09 89 99 03/04/21 22:05 99 H 111/61 03/04/21 22:04 90 98 03/04/21 22:00 93 H 108/57 03/04/21 21:59 96 H 97 03/04/21 21:55 86 105/57 03/04/21 21:54 91 H 96 03/04/21 21:50 95 H 106/59 03/04/21 21:49 89 97 03/04/21 21:45 96 H 105/53 03/04/21 21:44 101 H 96 03/04/21 21:41 97 H 86 03/04/21 21:40 114 H 99/51 03/04/21 21:39 99 H 98 03/04/21 21:35 56 L 107/57 90 03/04/21 21:34 99 H 99 03/04/21 21:30 98.4 F 03/04/21 19:13 100 H 98 03/04/21 19:08 95 H 100 03/04/21 19:03 105 H 100 03/04/21 18:58 101 H 100 03/04/21 18:53 91 H 99 03/04/21 18:48 95 H 100 03/04/21 18:44 96 H 121/61 03/04/21 18:43 91 H 100 03/04/21 18:38 101 H 100 03/04/21 18:33 76 100 03/04/21 18:28 93 H 100 03/04/21 18:23 85 99 03/04/21 18:18 82 100 03/04/21 18:13 93 H 100 03/04/21 18:08 90 100 03/04/21 18:04 88 125/72 03/04/21 18:03 85 100 03/04/21 17:58 106 H 131/59 100 03/04/21 17:55 111 H 91/50 03/04/21 17:53 106 H 100 03/04/21 17:48 100 H 100 03/04/21 17:44 82 108/48 03/04/21 17:43 88 100 03/04/21 17:39 72 112/46 03/04/21 17:38 72 100 03/04/21 17:35 83 99/46 03/04/21 17:33 81 100 03/04/21 17:28 87 81/40 100 03/04/21 17:24 70 77/41 03/04/21 17:23 65 100 03/04/21 17:22 67 78/39 03/04/21 17:18 84 99 03/04/21 17:17 88 86/51 03/04/21 17:15 95 H 89/50 03/04/21 17:13 83 100 03/04/21 17:08 82 100 03/04/21 17:03 94 H 100 03/04/21 16:58 95 H 100 03/04/21 16:53 78 100 03/04/21 16:48 88 110/74 100 03/04/21 16:43 66 100 03/04/21 16:38 81 99 03/04/21 16:33 76 100 03/04/21 16:28 80 99 03/04/21 16:27 97.7 F 20 03/04/21 16:23 93 H 99 03/04/21 16:21 88 120/72 03/04/21 16:18 85 100 03/04/21 16:13 90 100 03/04/21 16:08 118 H 100 03/04/21 16:03 82 100 03/04/21 15:58 76 100 03/04/21 15:53 69 100 03/04/21 15:48 74 100 03/04/21 15:47 73 98/52 03/04/21 15:43 77 100 03/04/21 15:38 76 100 03/04/21 15:33 77 100 03/04/21 15:28 77 100 03/04/21 15:23 70 100 03/04/21 15:19 76 97/54 03/04/21 15:18 73 100 03/04/21 15:13 77 100 03/04/21 15:08 65 100 03/04/21 15:03 78 100 03/04/21 14:58 71 100 03/04/21 14:53 74 99 03/04/21 14:48 69 99 03/04/21 14:47 81 101/56 03/04/21 14:43 94 H 98 03/04/21 14:38 72 99 03/04/21 14:33 77 100 03/04/21 14:32 71 116/53 03/04/21 14:28 68 98 03/04/21 14:23 74 99 03/04/21 14:18 73 100 03/04/21 14:13 81 100 03/04/21 14:08 92 H 100 03/04/21 14:03 90 99 03/04/21 13:58 66 99 03/04/21 13:53 69 100 03/04/21 13:48 80 104/52 100 03/04/21 13:43 78 100 03/04/21 13:38 74 100 03/04/21 13:33 77 99 03/04/21 13:32 74 95/48 03/04/21 13:28 78 99 03/04/21 13:23 79 99 03/04/21 13:20 84 111/52 03/04/21 13:18 80 100 03/04/21 13:13 84 100 03/04/21 13:08 90 100 03/04/21 13:03 85 99 03/04/21 13:02 80 101/55 03/04/21 12:58 81 100 03/04/21 12:53 79 100 03/04/21 12:48 76 99 03/04/21 12:47 78 117/59 03/04/21 12:43 71 99 03/04/21 12:38 74 97 03/04/21 12:33 81 97 03/04/21 12:30 78 105/55 03/04/21 12:28 90 98 03/04/21 12:25 87 96/54 03/04/21 12:23 85 96/55 99 03/04/21 12:19 82 114/57 03/04/21 12:18 89 100 03/04/21 12:16 84 113/56 03/04/21 12:13 80 112/54 100 03/04/21 12:12 79 92 03/04/21 12:10 94 H 118/63 03/04/21 12:08 91 H 99 03/04/21 12:07 100 H 114/55 03/04/21 12:04 92 H 102/54 03/04/21 12:03 109 H 99 03/04/21 12:01 93 H 107/56 03/04/21 11:58 101 H 105/55 100 03/04/21 11:56 95 H 105/56 03/04/21 11:53 104 H 136/69 100 03/04/21 11:50 87 111/56 03/04/21 11:48 100 H 100 03/04/21 11:43 103 H 100 03/04/21 11:41 103 H 141/69 03/04/21 11:38 97 H 96 03/04/21 11:35 68 32 L 03/04/21 11:33 95 H 100 03/04/21 11:28 83 99 03/04/21 11:23 82 99 03/04/21 11:18 90 100 03/04/21 11:17 98.9 F 03/04/21 11:15 59 L 87 03/04/21 11:14 76 123/74 03/04/21 11:13 86 99 03/04/21 11:08 84 99 03/04/21 11:03 96 H 99 03/04/21 10:58 64 84 03/04/21 10:53 86 100 03/04/21 10:48 98 H 99 03/04/21 10:43 105 H 100 03/04/21 10:29 90 100 03/04/21 10:24 82 99 03/04/21 10:19 74 99 03/04/21 10:14 73 98 03/04/21 10:09 68 98 03/04/21 10:04 77 98 03/04/21 09:59 78 98 03/04/21 09:54 81 98 03/04/21 09:49 80 98 03/04/21 09:44 74 98 03/04/21 09:39 77 98 03/04/21 09:34 78 97 03/04/21 09:29 91 H 92 03/04/21 09:28 70 93 Intake and Output 03/04/21 03/05/21 03/05/21 22:59 06:59 14:59 Intake Total 2665.920 1393 Output Total 1400 800 200 Balance 63.416 540 -200 Intake: IV 2436.970 8001 Lactated Ringers 1,000 ml 060.071 4766 @ 125 mls/hr IV DIRECT RICARDO Rx#:[id number] PITOCin/NS 30 UNIT/500ML 11.333 30 units In 500 ml @ 2 mls/hr IV TITR RICARDO Rx#: [id number] Intake, Free Water 240 Output: Urine 1400 800 200 Indwelling 700 0 Indwelling Catheter 600 600 200 Other: Total, Output Amount 600 600 200 Estimated Blood Loss 500 - Exam Breasts: Present: normal Abdomen: Present: normal appearance, soft, normal bowel sounds Vulva: both: normal Uterus: Present: normal, firm, fundal height below umbilicus Extremities: Present: normal Incision: Present: normal, dry, intact
[2021-03-05] MEDS: FERROUS SULFATE 325 MG TAB PO SCH (09:35)
[2021-03-05] MEDS: PRENATAL VIT27-FE FUMARATE-FOLIC ACID VIT TAB PO SCH (09:36)
[2021-03-05 11:59] LABS: Hematocrit 31.8 % (30.3-42.9); Hemoglobin 10.6 gm/dl (10.1-14.3)
[2021-03-05] MEDS: IBUPROFEN 800 MG TAB PO PRN (18:05)
[2021-03-06] MEDS: oxyCODONE /ACETAMINOPHEN 5-325MG TAB PO PRN ×4 (00:02→23:58)
[2021-03-06] MEDS ORDERED: TETANUS,DIPH,PERTUSS(ACELL) VACCINE 0.5 ML SYRINGE IM ONE (06:00)
[2021-03-06] MEDS: PRENATAL VIT27-FE FUMARATE-FOLIC ACID VIT TAB PO SCH (09:52)
[2021-03-06] MEDS: FERROUS SULFATE 325 MG TAB PO SCH (09:52)
[2021-03-06] MEDS: IBUPROFEN 800 MG TAB PO PRN (09:52)
--- NOTE | 2021-03-06 12:14 | Progress Note ---
Assessment and Plan A: POD #2 Stable P: Follow Routine PostOp Orders D/C Home in the AM RTO in 1 Week Subjective - Subjective Date of service: 03/06/21 Principal diagnosis: s/p primary LTCS Patient reports: appetite normal, voiding normally, pain well controlled, flatus, ambulating normally : doing well, bottle feeding (and ) Objective - Vital Signs Latest vital signs: Vital Signs Temp Pulse Resp BP BP Pulse Ox 03/06/21 09:52 18 03/06/21 08:15 98.2 F 72 18 93/47 98 03/06/21 00:00 98.6 F 77 16 102/74 03/05/21 21:14 98.0 F 78 18 102/47 100 03/05/21 16:50 98.1 F 83 18 110/57 100 Intake and Output 03/05/21 03/06/21 03/06/21 22:59 06:59 14:59 Intake Total 600 Output Total 450 400 Balance -450 600 -400 Intake: Intake, Free Water 600 Output: Urine 450 400 Void 450 400 Other: Total, Output Amount 450 400 # Voids Void 1 1 - Exam Breasts: Present: normal Cardiovascular: Present: Regular rate Lungs: Present: Clear to auscultation, Normal air movement Abdomen: Present: normal appearance, soft, normal bowel sounds Uterus: Present: normal, firm, fundal height below umbilicus Extremities: Present: normal Incision: Present: normal, dry, intact
--- NOTE | 2021-03-06 12:16 | Discharge Summary ---
Providers - Providers Date of Admission: 03/01/21 08:24 Date of discharge: 03/07/21 Attending physician: JULY ONEAL MD Primary care physician: JULY ONEAL MD Hospitalization Reason for admission: induction of labor Delivery: Procedure: primary low transverse Episiotomy: none Laceration: none Incision: normal, dry, intact Other procedures: none complications: none Discharge diagnosis: IUP at term delivered [place] baby: male Condition at discharge: Good Disposition: DC-01 TO HOME OR SELFCARE Plan - Provider Discharge Summary Activity: routine, no sex for 6 weeks, no heavy lifting 4 weeks, no strenuous exercise Diet: routine Instructions: routine Additional instructions: [] Smoking cessation referral if applicable(refer to patient education folder for contact #) [] Refer to [facility] Booklet Call your doctor immediately for: * Fever > 100.5 * Heavy vaginal bleeding ( >1 pad per hour) * Severe persistent headache * Shortness of breath * Reddened, hot, painful area to leg or breast * Drainage or odor from incision. * Keep incision clean and dry at all times and follow doctor's instructions regarding bathing/showering - Follow up plan Follow up: JULY ONEAL MD [Primary Care Provider] - 7 Days
[2021-03-07] MEDS: IBUPROFEN 800 MG TAB PO PRN (05:19)
[2021-03-07] MEDS: oxyCODONE /ACETAMINOPHEN 5-325MG TAB PO PRN (09:10)
[2021-03-07] MEDS: PRENATAL VIT27-FE FUMARATE-FOLIC ACID VIT TAB PO SCH (09:10)
[2021-03-07] MEDS: FERROUS SULFATE 325 MG TAB PO SCH (09:10)
[2021-03-07 12:51] VITALS: BP 131/65
== END 2021-03-07 13:05 | disposition home or self-care (01) | DRG 765 ==
LOC: LD 08:24 → OB 03-04 23:25
PROVIDERS: ADMIT Obstetrics & Gynecology; ATTEND Obstetrics & Gynecology
PROC: 10907ZC Drainage of Amniotic Fluid, Therapeutic from Products of Conception, Via Natural or Artificial Opening (ICD-10-PCS; principal; 2021-03-04)
PROC: 10D00Z1 Extraction of Products of Conception, Low, Open Approach (ICD-10-PCS; 2021-03-04)
PROC: 10H07YZ Insertion of Other Device into Products of Conception, Via Natural or Artificial Opening (ICD-10-PCS; 2021-03-04)
PROC: 3E0234Z Introduction of Serum, Toxoid and Vaccine into Muscle, Percutaneous Approach (ICD-10-PCS; 2021-03-06)
DX: O76 Abnormality in fetal heart rate and rhythm complicating labor and delivery (principal); U07.1 COVID-19; O98.52 Other viral diseases complicating childbirth; O99.824 Streptococcus B carrier state complicating childbirth; O99.214 Obesity complicating childbirth; E66.01 Morbid (severe) obesity due to excess calories; Z37.0 Single live birth; Z3A.38 38 weeks gestation of pregnancy; Z87.891 Personal history of nicotine dependence
CPT/HCPCS: 36415; 59200; 85014; 85018; 85027; 86850; 86900; 86901; 90471; 90715; 99211; G0378; G0463; J0290; J0690; J1100; J1885; J2405; J2590; J2765; J3010; J7120; U0003